=== PATIENT | female | born 1955 | race Caucasian/White ===

== ENCOUNTER → 2016-12-20 | Outpatient (CLI) | payer OTHER | LOC: FIMAGING 09:30 | PROVIDERS: ATTEND Internal Medicine | DX: M25.551 Pain in right hip (principal); M25.552 Pain in left hip ==

== ENCOUNTER → 2017-02-25 | Outpatient (CLI) | payer OTHER | LOC: BMCIMAGING 16:20 | PROVIDERS: ATTEND Internal Medicine | DX: R05 Cough (principal) ==